=== PATIENT | male | born 1980 | race Caucasian/White ===

== ENCOUNTER 2016-03-16 02:04 | Emergency (ER) | payer OTHER ==
[~2016-03-16] VITALS: Ht 180.3 cm; Wt 65.0 kg
[2016-03-16 02:15] VITALS: BP 130/71; PULSE 84; RESP 16; TEMP 97.5; O2SAT 100
[2016-03-16] MEDS ORDERED: ONDANSETRON ODT 4 MG TAB ONE (02:43)
[2016-03-16] MEDS ORDERED: KETOROLAC TROMETHAMINE 30 MG/ML (IVP) VIAL ONE (02:43)
[2016-03-16] MEDS ORDERED: oxyCODONE/ACETAMINOPHEN 5 MG/325 MG TAB ONE (02:44)
[2016-03-16] MEDS ORDERED: DICL75TA PO (04:18)
--- NOTE | 2016-03-16 04:19 | PD ---
HPI Chief Complaint: left ankle pain Time Seen by Provider: 02:45 Travel History International Travel<30 days: No Contact w/Intl Traveler<30days: No Traveled to known affect area: No History of Present Illness HPI This is a male who presents for evaluation of left ankle pain. He reports that earlier in the day he had a mis-step and he thought nothing of it. He continued walking and performing his usual activities of daily living. This evening he developed pain in his left ankle. Pain is a throbbing pain which is constant and worse with ambulation. He tried taking Excedrin prior to arrival. He denies any pain in his left foot, left calf, left knee. He has no other complaints at this time. [facility] Social History Tobacco Use: Yes Allergies-Medications (Allergen,Severity, Reaction): Coded Allergies: No Known Allergies (Unverified , 03/16/16) Reported Meds & Prescriptions Reported Meds & Active Scripts Active Diclofenac Sodium DR (Diclofenac Sodium) 75 Mg Tabdr 75 Mg PO BID 10 Days Review of Systems Except as stated in HPI: all other systems reviewed are Neg Physical Exam Narrative GENERAL: Well-developed well-nourished male in no acute distress. [facility] and written in the paper chart, they are within normal limits SKIN: Warm and dry. There is no bruising, no soft tissue swelling CARDIOVASCULAR: Regular rate and rhythm. No murmur appreciated. RESPIRATORY: No accessory muscle use. Clear to auscultation. Breath sounds equal bilaterally. MUSCULOSKELETAL: No obvious deformities. The patient has tenderness to palpation along the left ankle medial deltoid complex and lateral ankle distal to the lateral malleolus. There is no tenderness to palpation along the shaft of the left fibula, left tibia. There is no left knee tenderness. There is no tenderness to palpation to the metatarsals of the left foot. There is no tenderness to palpation to the left Achilles tendon, calf, he'll. Negative Brian's test. 2+ dorsalis pedis and posterior tibial pulses. Pain with dorsi and plantar flexion. NEUROLOGICAL: Awake and alert. No obvious cranial nerve deficits. Motor grossly within normal limits. Normal speech. [facility] Medical Decision Making Medical Screen Exam Complete: Yes Emergency Medical Condition: Yes Medical Record Reviewed: Yes Differential Diagnosis Lateral ankle sprain, avulsion fracture, fibular head fracture, Lisfranc injury Narrative Course 35-year-old male presents with left ankle pain after having a "misstep" earlier today. Physical examination reveals tenderness to palpation to the medial lateral left ankle joint with no obvious deformities, no bruising or soft tissue swelling. The left ankle x-ray was performed and revealed no acute abnormalities. The patient was given pain medication here. I have a medial and lateral left ankle sprain. The patient was placed in an ankle stirrup splint and given crutches. He does have a history of opiate addiction in the past and so no narcotic prescription will be given. He'll be discharged with a prescription for diclofenac. Diagnosis Primary Impression: Left ankle sprain Qualified Code: S93.402A - Sprain of left ankle, unspecified ligament, initial encounter Additional Instructions: Take the medication as needed for discomfort. Can also take [id number] Tylenol. Ice several times a day 10-15 minutes at a time. Rest. Crutches as needed. Follow up next week with primary care physician. Return for any emergent medical conditions. Med/Other Pt SpecificInfo: No Change to Meds, Orthopedic Instructions Scripts Diclofenac Sodium DR 75 Mg Tabdr75 Mg PO BID 10 Days Ref 0 Prov:Naida Coleman DO 03/16/16 Disposition: 01 DISCHARGE HOME Condition: Stable Titi Franks Mar 16, 2016 04:19
--- NOTE | 2016-03-16 09:08 | RADRPT ---
EXAM DATE/TIME: 03/16/2016 02:54 [place] COMPARISON: No previous studies available for comparison. INDICATIONS : Pt twisted left ankle. Unknown injury. MEDICAL HISTORY : None. SURGICAL HISTORY : None. ENCOUNTER: Initial ACUITY: 1 day PAIN SCORE: 9/10 LOCATION: Left ankle FINDINGS: Three view exam was performed of the left ankle. The bony structures are in normal alignment. No ev idence of fracture, dislocation, or soft tissue swelling. The ankle mortise is intact. No radiopaqu e foreign bodies are seen. Bony mineralization is normal. CONCLUSION: No evidence of recent bone injury. Jamshid Prajapati MD on March 16, 2016 at 3:02 Board Certified Radiologist. This report was verified electronically.
[2016-03-17] MEDS ORDERED: TYLETAB34 PO (03:55)
[2016-03-17] MEDS ORDERED: CAPS0.072 TOPICAL (03:56)
== END 2016-03-16 04:42 | disposition home or self-care (01) ==
LOC: NED 02:04 → NEPB 04:42
DX: S93.492A Sprain of other ligament of left ankle, initial encounter (principal); X50.1XXA Overexertion from prolonged static or awkward postures, initial encounter
CPT/HCPCS: 73610; 96374; 99283; E0113; J1885

== ENCOUNTER 2016-03-16 09:50 | Emergency (ER) | payer OTHER ==
[~2016-03-16] VITALS: Ht 182.9 cm; Wt 68.0 kg
[~2016-03-16 09:50] MED LIST: DICL75TA PO
[2016-03-16 09:51] VITALS: BP 139/76; PULSE 114; RESP 20; TEMP 98; O2SAT 99
--- NOTE | 2016-03-16 10:49 | PD ---
HPI Chief Complaint: Pain: Acute or Chronic Time Seen by Provider: 10:08 Travel History International Travel<30 days: No Contact w/Intl Traveler<30days: No Traveled to known affect area: No History of Present Illness HPI Patient comes back to the emergency Department after being seen here approximately 8 hours ago requesting something stronger for pain. Patient states he took the diclofenac as prescribed 1 dose along with Tylenol continues to have pain in his ankle. Patient is wearing his ankle stirrup reports to be using his crutches as well. Patient denies any new injuries, fevers, or numbness or tingling. History Social History Alcohol Use: No Tobacco Use: Yes Allergies-Medications (Allergen,Severity, Reaction): Coded Allergies: No Known Allergies (Unverified , 03/16/16) Reported Meds & Prescriptions Reported Meds & Active Scripts Active Diclofenac Sodium DR (Diclofenac Sodium) 75 Mg Tabdr 75 Mg PO BID 10 Days Review of Systems Except as stated in HPI: all other systems reviewed are Neg Physical Exam Narrative GENERAL: Well-developed, well nourished, in no acute distress, and non-ill appearing. SKIN: Warm and dry. HEAD: Atraumatic. Normocephalic. EYES: Pupils equal and round. EOMI. No scleral icterus. No injection or drainage. ENT: No nasal bleeding or discharge. Mucous membranes pink and moist. NECK: Trachea midline. Supple. No nuclear rigidity. CARDIOVASCULAR: Dorsal pulses 2+ intact. Capillary refill less than 2 seconds. RESPIRATORY: No accessory muscle use. No respiratory distress. MUSCULOSKELETAL: No obvious deformities. No clubbing. No cyanosis. No edema. Decreased range of motion left ankle secondary to pain and ankle stirrup. NEUROLOGICAL: Awake and alert. No obvious cranial nerve deficits. Motor grossly within normal limits. Normal speech. PSYCHIATRIC: Appropriate mood and affect; insight and judgment normal. Data Data Last Documented VS Vital Signs Date Time Temp Pulse Resp B/P Pulse Ox O2 Delivery O2 Flow Rate FiO2 03/16/16 09:51 98.0 114 20 139/76 99 Room Air MDM Medical Screen Exam Complete: Yes Emergency Medical Condition: No Narrative Course History and physical exam findings are not consistent with an emergent medical condition. Patient slightly elevated heart rate noted on initial vitals most likely secondary to the patient using crutches coming back into the emergency department as patient's pulse was normal sinus rhythm when evaluating his dorsal pulses after patient had been sitting for little bit of time. Previous medical record was reviewed and imaging of the ankle that was read by the radiologist for no acute findings. There is been no new injuries, fevers, or change in symptoms and no reported history of known trauma, therefore additional imaging is not indicated at this time. He was given the option of receiving additional care, but has declined. Therefore the appropriate counseling recommendations were discussed with the patient and he was instructed to follow-up with his primary care physician as soon as possible for reevaluation. Patient was also informed of community resources from which he can obtain additional care. He is agreeable and verbalizes an understanding of the proposed plan. The patient states he will immediately return to the emergency department if his current complaints do not improve, new symptoms arise, or emergent condition develops. Patient ambulated out of the emergency department without difficulty on crutches. Primary Impression: Encounter for medical screening examination Disposition: [facility]-ED USE ONLY Condition: Stable Jose Nova Mar 16, 2016 10:49
[2016-03-17] MEDS ORDERED: TYLETAB34 PO (03:55)
[2016-03-17] MEDS ORDERED: CAPS0.072 TOPICAL (03:56)
== END 2016-03-16 10:43 | disposition left against medical advice (07) ==
LOC: NEPB 09:50
DX: M25.572 Pain in left ankle and joints of left foot (principal)
CPT/HCPCS: 99281

== ENCOUNTER 2016-03-17 03:36 | Emergency (ER) | payer OTHER ==
[~2016-03-17] VITALS: Ht 182.9 cm; Wt 68.0 kg
[2016-03-17 03:39] VITALS: BP 122/68; PULSE 104; RESP 16; TEMP 97.4; O2SAT 99
[2016-03-17] MEDS ORDERED: TYLETAB34 PO (03:55)
[2016-03-17] MEDS ORDERED: CAPS0.072 TOPICAL (03:56)
[2016-03-17] MEDS ORDERED: ACETAMINOPHEN/CODEINE 300 MG/30 MG TAB PO ONE (04:00)
--- NOTE | 2016-03-17 04:05 | PD ---
HPI Chief Complaint: Injury Time Seen by Provider: 03:50 Travel History International Travel<30 days: No Contact w/Intl Traveler<30days: No Traveled to known affect area: No History of Present Illness HPI This is a 35-year-old male who presents with continued left ankle pain. The patient reports that yesterday he had a misstep while walking. He thought nothing of it but later on in the evening he developed left ankle pain. He describes it as a throbbing pain on the medial and lateral aspect of the left ankle joint, reproduced with walking. He was seen here yesterday evening and had an x-ray of the left ankle which revealed no acute bony abnormalities. He was diagnosed with ankle sprain and discharged with ankle stirrup splint, crutches, diclofenac prescription. He presents this evening because the pain has persisted. The pain is localized to the medial and lateral left ankle and it is worse with range of motion, movement. He denies any new injuries. Denies any pain in the left foot, left calf, left knee. He has no other complaints at this time. PFSH Past Medical History Diminished Hearing: No Social History Alcohol Use: No Tobacco Use: Yes Substance Use: No Allergies-Medications (Allergen,Severity, Reaction): Coded Allergies: No Known Allergies (Unverified , 03/17/16) Reported Meds & Prescriptions Reported Meds & Active Scripts Active Capsaicin Topical (Capsaicin) 0.075% Cream 1 Applic TOPICAL BID Tylenol-Codeine #3 (Acetaminophen-Codeine) 300-30 mg Tab 1-2 Tab PO Q6H PRN Diclofenac Sodium DR (Diclofenac Sodium) 75 Mg Tabdr 75 Mg PO BID 10 Days Review of Systems Musculoskeletal: Positive: Limited ROM, Pain Skin: Positive Other (denies open wounds) Physical Exam Narrative GENERAL: This is a well-developed well-nourished male in no acute distress SKIN: Warm and dry. MUSCULOSKELETAL: The patient has focal tenderness to palpation along the medial left ankle deltoid ligament complex as well as along the lateral left ankle inferior to the lateral malleolus. There is no bruising or soft tissue swelling. There is no tenderness to palpation of the left foot metatarsals or toes. The Achilles tendon is intact and nontender, negative Brian's test. There is no tenderness to palpation to left heel, left calf. 2+ dorsalis pedis and posterior tibial pulses. The patient has pain with passive and active range of motion of the left ankle joint. NEUROLOGICAL: Awake and alert. No obvious cranial nerve deficits. Motor grossly within normal limits. Normal speech. PSYCHIATRIC: Appropriate mood and affect; insight and judgment normal. Data Data Last Documented VS Vital Signs Date Time Temp Pulse Resp B/P Pulse Ox O2 Delivery O2 Flow Rate FiO2 03/17/16 03:39 97.4 104 16 122/68 99 Room Air Orders Acetamin-Codeine 300-30 Mg (Tylenol-Code (03/17/16 04:00) MDM Medical Decision Making Medical Screen Exam Complete: Yes Emergency Medical Condition: Yes Medical Record Reviewed: Yes Differential Diagnosis Medial left ankle sprain, lateral left ankle sprain, avulsion fracture, fibular fracture, Lisfranc injury, inflammatory arthritis, Achilles tendon rupture Narrative Course 35 year old male presents with persistent left ankle pain which developed yesterday. He had a normal left ankle x-ray yesterday. On examination his pain is focally localized to the medial left ankle along the deltoid ligament complex as well as the lateral left ankle inferior to the lateral malleolus. His symptoms and examination are consistent with an ankle sprain. He does not have any bruising, soft tissue swelling, evidence of infection or inflammatory arthritis. The Achilles tendon is intact. There is no evidence of Lisfranc injury or metatarsal or tarsal fracture on exam. There is no evidence of neurovascular pathology. The plan is to treat the patient's pain with diclofenac which was previously prescribed. He will be given prescriptions now for capsaicin cream as well as Tylenol with codeine for breakthrough pain. He is encouraged to continue conservative therapy and follow-up with his primary care physician in 3-4 days if symptoms have not improved. Return for any new or worsening symptoms. He will be given a note for work for the next 2 days. Diagnosis Primary Impression: Left ankle sprain Qualified Code: S93.402A - Sprain of left ankle, unspecified ligament, initial encounter Departure Forms: Tests/Procedures, Work Release Enter return to work date: Mar 19, 2016 Additional Instructions: Continue diclofenac as prescribed. Take with meals. Capsaicin cream as needed. Take Tylenol with codeine for breakthrough pain. Do not drive or drink alcohol when taking this medication. Continue ice several times a day 10- 15 minutes at a time, elevation, rest, crutches as needed. Follow-up with primary care physician in 3-4 days if symptoms do not improve. Return for any emergent medical conditions. Med/Other Pt SpecificInfo: Prescription(s) given, Orthopedic Instructions Scripts Capsaicin Topical 0.075% Cream1 Applic TOPICAL BID #1 TUBE Ref 0 Prov:Jody Bingham MD 03/17/16 Acetaminophen-Codeine (Tylenol-Codeine #3)300-30 mg Tab1-2 Tab PO Q6H PRN (PAIN ) #20 TAB Ref 0 Prov:Jody Bingham MD 03/17/16 Disposition: 01 DISCHARGE HOME Condition: Stable Titi Franks Mar 17, 2016 04:05
== END 2016-03-17 05:05 | disposition home or self-care (01) ==
LOC: NEPB 03:36
DX: S93.402A Sprain of unspecified ligament of left ankle, initial encounter (principal); W18.30XA Fall on same level, unspecified, initial encounter; Y93.01 Activity, walking, marching and hiking
CPT/HCPCS: 99283